=== PATIENT | female | born 1965 | race Caucasian/White ===

== ENCOUNTER 2018-02-11 10:19 | Observation (INO) | payer OTHER ==
[2018-02-11] MEDS ORDERED: SODIUM CHLORIDE 0.9% 1,000 ML IV STA (10:33)
[2018-02-11] MEDS ORDERED: ONDANSETRON 4 MG/2 ML VIAL IVP STA (10:33)
[2018-02-11] MEDS ORDERED: MORPHINE SULFATE 4 MG/ML SYRINGE IVP STA (10:44)
--- NOTE | 2018-02-11 11:06 | ED ---
Abdominal Pain HPI - General Source: patient, RN notes reviewed Mode of arrival: ambulatory Limitations: no limitations <Veto Nino - Last Filed: 02/11/18 12:54> <Jose Maldonado - Last Filed: 02/11/18 13:26> - General Chief Complaint: Abdominal Pain Stated Complaint: abdominal pain Time Seen by Provider: 02/11/18 10:33 - History of Present Illness Initial Comments: 52-year-old female presents emergency Department chief complaint severe right lower quadrant abdominal pain. Patient states pain started last night she states that she woke up around 11:30 with severe pain and has persisted. She does admit to nausea vomiting denies diarrhea, constipation, melena hematochezia. Patient has no dysuria no hematuria. Patient denies any chance . Patient states that she's had no prior abdominal surgeries. Patient denies flank pain, back pain, history kidney stones. She has no current chest pain or shortness breath. Symptoms are worsened with walking, movement and she noticed increased pain with laying flat and the car ride. ( Veto Nino) - Related Data Home Medications Medication Instructions Recorded Confirmed Acetaminophen [Tylenol Extra 500 mg PO Q6H PRN 02/11/18 02/11/18 Strength] Allergies Allergy/AdvReac Type Severity Reaction Status Date / Time No Known Allergies Allergy Verified 02/11/18 11:11 Review of Systems ROS Other: All systems not noted in ROS Statement are negative. <Veto Nino - Last Filed: 02/11/18 12:54> ROS Other: All systems not noted in ROS Statement are negative. <Jose Maldonado - Last Filed: 02/11/18 13:26> ROS Statement: Those systems with pertinent positive or pertinent negative responses have been documented in the HPI. Past Medical History Past Medical History: No Reported History History of Any Multi-Drug Resistant Organisms: None Reported Past Surgical History: No Surgical Hx Reported Past Psychological History: No Psychological Hx Reported Smoking Status: Never smoker Past Alcohol Use History: None Reported Past Drug Use History: None Reported <Veto Nino - Last Filed: 02/11/18 12:54> General Exam Limitations: no limitations General appearance: alert, in no apparent distress, other (Patient appears uncomfortable) Head exam: Present: atraumatic, normocephalic, normal inspection Eye exam: Present: normal appearance, PERRL, EOMI. Absent: scleral icterus, conjunctival injection, periorbital swelling ENT exam: Present: normal exam, normal oropharynx, mucous membranes moist Neck exam: Present: normal inspection, full ROM. Absent: tenderness, meningismus, lymphadenopathy Respiratory exam: Present: normal lung sounds bilaterally. Absent: respiratory distress, wheezes, rales, rhonchi, stridor Cardiovascular Exam: Present: regular rate, normal rhythm, normal heart sounds. Absent: systolic murmur, diastolic murmur, rubs, gallop, clicks GI/Abdominal exam: Present: soft, tenderness (Moderate severe right lower quadrant tenderness), guarding, normal bowel sounds. Absent: distended, rebound , rigid Back exam: Absent: CVA tenderness (R), CVA tenderness (L) Skin exam: Present: warm, dry, intact, normal color. Absent: rash <Veto Nino - Last Filed: 02/11/18 12:54> Course <Veto Nino - Last Filed: 02/11/18 12:54> <Jose Maldonado - Last Filed: 02/11/18 13:26> Vital Signs 02/11/18 02/11/18 02/11/18 10:29 12:15 13:15 Temperature 98.3 F 98.6 F Pulse Rate 90 66 69 Respiratory 18 20 20 Rate Blood Pressure 101/61 104/74 111/60 O2 Sat by Pulse 97 99 99 Oximetry 02/11/18 13:21 Temperature 98.3 F Pulse Rate Respiratory Rate Blood Pressure O2 Sat by Pulse Oximetry - Reevaluation(s) Reevaluation #1: 02/11/18 13:05 Patient reevaluated and reexamined by myself, Dr. Maldonado. Patient resting comfortably in bed. Patient does have moderate abdominal discomfort mostly on the right side of the. Umbilical region. Patient updated on results and plan. Dr. Goldman has an paged for admission for Dr. Gay. I did review and agree with PA findings. This includes all diagnostic interpretations and treatment plan. 02/11/18 13:26 Case was discussed with Dr. Goldman, who will admit. He requests consult with Dr. Black. (Jose Maldonado) Medical Decision Making - Lab Data Result diagrams: 02/11/18 11:05 02/11/18 11:05 <Veto Nino - Last Filed: 02/11/18 12:54> - Lab Data Result diagrams: 02/11/18 11:05 02/11/18 11:05 <Jose Maldonado - Last Filed: 02/11/18 13:26> - Medical Decision Making 52-year-old female presents emergency department for abdominal pain. Patient's found to have acute diverticulitis without evidence of perforation. Patient is having intractable abdominal pain. Patient is not tolerating orals and pain is not controlled to be discharged on oral antibiotics at this time. Patient will be admitted for IV pain meds, IV antibiotics. (Veto Nino) - Lab Data Lab Results 02/11/18 02/11/18 02/11/18 Range/Units 11: 11:05 11:05 WBC 14.5 H (3.8-10.6) k/uL RBC 4.79 (3.80-5.40) m/uL Hgb 13.8 (11.4-16.0) gm/dL Hct 41.6 (34.0-46.0) % MCV 86.9 (80.0-100.0) fL MCH 28.9 (25.0-35.0) pg MCHC 33.2 (31.0-37.0) g/dL RDW 13.2 (11.5-15.5) % Plt Count 370 (150-450) k/uL Neutrophils % 84 % Lymphocytes % 10 % Monocytes % 4 % Eosinophils % 1 % Basophils % 0 % Neutrophils # 12.2 H (1.3-7.7) k/uL Lymphocytes # 1.4 (1.0-4.8) k/uL Monocytes # 0.6 (0-1.0) k/uL Eosinophils # 0.2 (0-0.7) k/uL Basophils # 0.1 (0-0.2) k/uL Sodium 140 (137-145) mmol/L Potassium 4.6 (3.5-5.1) mmol/L Chloride 102 (98-107) mmol/L Carbon Dioxide 26 (22-30) mmol/L Anion Gap 12 mmol/L BUN 16 (7-17) mg/dL Creatinine 0.77 (0.52-1.04) mg/dL Est GFR (CKD-EPI)AfAm >90 (>60 ml/min/1.73 sqM) Est GFR (CKD-EPI)NonAf 90 (>60 ml/min/1.73 sqM) Glucose 101 H (74-99) mg/dL Plasma Lactic Acid Paul (0.7-2.0) mmol/L Calcium 10.3 H (8.4-10.2) mg/dL Total Bilirubin 1.1 (0.2-1.3) mg/dL AST 24 (14-36) U/L ALT 28 (9-52) U/L Alkaline Phosphatase 90 (38-126) U/L Total Protein 8.0 (6.3-8.2) g/dL Albumin 4.6 (3.5-5.0) g/dL Amylase 45 (30-110) U/L Lipase 59 (23-300) U/L Urine Color Light Yellow Urine Appearance Clear (Clear) Urine pH 6.0 (5.0-8.0) Ur Specific [place] 1.011 (1.001-1.035) Urine Protein Negative (Negative) Urine Glucose (UA) Negative (Negative) Urine Ketones Negative (Negative) Urine Blood Negative (Negative) Urine Nitrite Negative (Negative) Urine Bilirubin Negative (Negative) Urine Urobilinogen <2.0 (<2.0) mg/dL Ur Leukocyte Esterase Small H (Negative) Urine RBC 1 (0-5) /hpf Urine WBC 3 (0-5) /hpf Ur Squamous Epith Cells 1 (0-4) /hpf Urine Bacteria Rare H (None) /hpf Urine Mucus Occasional H (None) /hpf 02/11/ Range/Units 11:05 WBC (3.8-10.6) k/uL RBC (3.80-5.40) m/uL Hgb (11.4-16.0) gm/dL Hct (34.0-46.0) % MCV (80.0-100.0) fL MCH (25.0-35.0) pg MCHC (31.0-37.0) g/dL RDW (11.5-15.5) % Plt Count (150-450) k/uL Neutrophils % % Lymphocytes % % Monocytes % % Eosinophils % % Basophils % % Neutrophils # (1.3-7.7) k/uL Lymphocytes # (1.0-4.8) k/uL Monocytes # (0-1.0) k/uL Eosinophils # (0-0.7) k/uL Basophils # (0-0.2) k/uL Sodium (137-145) mmol/L Potassium (3.5-5.1) mmol/L Chloride (98-107) mmol/L Carbon Dioxide (22-30) mmol/L Anion Gap mmol/L BUN (7-17) mg/dL Creatinine (0.52-1.04) mg/dL Est GFR (CKD-EPI)AfAm (>60 ml/min/1.73 sqM) Est GFR (CKD-EPI)NonAf (>60 ml/min/1.73 sqM) Glucose (74-99) mg/dL Plasma Lactic Acid Paul 1.0 (0.7-2.0) mmol/L Calcium (8.4-10.2) mg/dL Total Bilirubin (0.2-1.3) mg/dL AST (14-36) U/L ALT (9-52) U/L Alkaline Phosphatase (38-126) U/L Total Protein (6.3-8.2) g/dL Albumin (3.5-5.0) g/dL Amylase (30-110) U/L Lipase (23-300) U/L Urine Color Urine Appearance (Clear) Urine pH (5.0-8.0) Ur Specific [place] (1.001-1.035) Urine Protein (Negative) Urine Glucose (UA) (Negative) Urine Ketones (Negative) Urine Blood (Negative) Urine Nitrite (Negative) Urine Bilirubin (Negative) Urine Urobilinogen (<2.0) mg/dL Ur Leukocyte Esterase (Negative) Urine RBC (0-5) /hpf Urine WBC (0-5) /hpf Ur Squamous Epith Cells (0-4) /hpf Urine Bacteria (None) /hpf Urine Mucus (None) /hpf Disposition <Veto Nino - Last Filed: 02/11/18 12:54> <Jose Maldonado - Last Filed: 02/11/18 13:26> Clinical Impression: Diverticulitis, Intractable abdominal pain Disposition: ADMITTED IP TO THIS HOSP
[2018-02-11 11:27] LABS: Basophils # (A) 0.1 k/uL (0-0.2); Basophils % (A) 0 %; Eosinophils # (A) 0.2 k/uL (0-0.7); Eosinophils % (A) 1 %; HCT 41.6 % (34.0-46.0); HGB 13.8 gm/dL (11.4-16.0); Lymphocytes # (A) 1.4 k/uL (1.0-4.8); Lymphocytes % (A) 10 %; MCH 28.9 pg (25.0-35.0); MCHC 33.2 g/dL (31.0-37.0); MCV 86.9 fL (80.0-100.0); Mean Platelet Volume 7.5; Monocytes # (A) 0.6 k/uL (0-1.0); Monocytes % (A) 4 %; Neutrophils # (A) 12.2 k/uL (1.3-7.7); Neutrophils % (A) 84 %; Platelet Count 370 k/uL (150-450); RBC 4.79 m/uL (3.80-5.40); RDW 13.2 % (11.5-15.5); WBC 14.5 k/uL (3.8-10.6)
[2018-02-11 11:35] LABS: Appearance,Urine Clear (Clear); Bacteria,Urine Rare /hpf; Bilirubin,Urine Negative (Negative); Blood,Urine Negative (Negative); Color,Urine Light Yellow; Glucose,Urine (UA) Negative (Negative); Ketones,Urine Negative (Negative); Leukocyte Esterase,Urine Small (Negative); Mucus,Urine Occasional /hpf; Nitrite,Urine Negative (Negative); Protein,Urine Negative (Negative); RBC,Urine 1 /hpf (0-5); Specific Gravity,Urine 1.011 (1.001-1.035); Squamous Epithelial Cell,Urine 1 /hpf (0-4); Urobilinogen,Urine <2.0 mg/dL (<2.0); WBC,Urine 3 /hpf (0-5)
[2018-02-11 11:40] LABS: ALT 28 U/L (9-52); AST 24 U/L (14-36); Albumin 4.6 g/dL (3.5-5.0); Alkaline Phosphatase 90 U/L (38-126); Amylase 45 U/L (30-110); Anion Gap 12 mmol/L; Blood Urea Nitrogen 16 mg/dL (7-17); Calcium 10.3 mg/dL (8.4-10.2); Carbon Dioxide 26 mmol/L (22-30); Chloride 102 mmol/L (98-107); Glucose 101 mg/dL (74-99); Lipase 59 U/L (23-300); Potassium 4.6 mmol/L (3.5-5.1); Sodium 140 mmol/L (137-145); Total Bilirubin 1.1 mg/dL (0.2-1.3)
--- NOTE | 2018-02-11 12:16 | CT ---
EXAMINATION TYPE: CT abdomen pelvis w con DATE OF EXAM: 02/11/2018 HISTORY: Right lower quadrant pain with nausea and vomiting CT DLP: 568.8mGycm Automated Exposure Control for Dose Reduction was Utilized. CONTRAST: CT scan of the abdomen and pelvis is performed without oral but with IV Contrast, patient injected wi th 100 mL of Isovue 300. COMPARISON: None FINDINGS: LUNG BASES: No there is partial visualization of bilateral breast implants. Dependent atelectasis in both bases is present LIVER/GB: No significant abnormality is appreciated. PANCREAS: No significant abnormality is seen. SPLEEN: No significant abnormality is seen. ADRENALS: No significant abnormality is seen. KIDNEYS: No significant abnormality is seen. BOWEL: Evaluation bowel slightly suboptimal secondary to lack of enteric contrast there is no suspici ous small or large bowel dilatation. There is low lying cecum into the right pelvis just above bladde r. Appendix is felt within normal limits ascending from cecum seen best coronal images 38 through 44 with S-shaped course. There are scattered colonic diverticula . There is focal moderate to severe wal l thickening with prominent superior aspect diverticulum in the transverse colon just right of midlin e coronal image 32 has mild to moderate surrounding fluid and fat stranding consistent with acute div erticulitis at this level. No well-formed fluid collection or abscess is seen. No pneumoperitoneum is noted. UTERUS/ADNEXA: Metallic IUD is seen centrally in anteverted uterus. LYMPH NODES: No greater than 1cm abdominal or pelvic lymph nodes are appreciated. OSSEOUS STRUCTURES: Spine is straightened on sagittal images there is mild to moderate disc space zahra rowing and spurring at L1-L2 level. OTHER: No significant additional abnormality is seen. IMPRESSION: CT findings consistent with a fairly moderate acute diverticulitis involving the transver se colon proximal to mid aspect just right of midline just above the umbilicus. Because of location a nd eccentric wall thickening and patient's age follow-up colonoscopy after treatment advised to rule out neoplasm at this level if has not been performed in last 3 years.
[2018-02-11] MEDS ORDERED: HYDROmorphone 1 MG/ML 1 ML SYRINGE IVP STA ×2 (12:47→15:01)
[2018-02-11] MEDS ORDERED: NALOXONE 0.4 MG/ML 1 ML VIAL IV PRN (12:55)
[2018-02-11] MEDS ORDERED: HYDROmorphone 1 MG/ML 1 ML SYRINGE IVP PRN ×2 (12:55)
[2018-02-11] MEDS ORDERED: ONDANSETRON 4 MG/2 ML VIAL IVP PRN ×2 (12:55→15:24)
[2018-02-11] MEDS ORDERED: LEVOFLOXACIN 750MG-D5W PMX 750 MG in DEXTROSE/WATER 1 150ML.BAG IVPB STA (12:56)
[2018-02-11] MEDS ORDERED: metroNIDAZOLE-NS PMX 500 MG in SALINE 1 100ML.BAG IVPB STA (12:56)
[2018-02-11] MEDS: SODIUM CHLORIDE 0.9% 1,000 ML IV SCH ×2 (12:57→23:48)
[2018-02-11] MEDS: metroNIDAZOLE-NS PMX 500 MG in SALINE 1 100ML.BAG IVPB SCH ×2 (15:17→23:47)
--- NOTE | 2018-02-11 15:23 | P.HPIM ---
History of Present Illness H&P Date: 02/11/18 Chief Complaint: abdominal pain This is a 52-year-old female patient of Dr. Gay. Patient presented to the emergency room with complaints of abdominal pain started last night and that she woke up around 11:30 with severe abdominal pain. Over the past couple hours pain became significantly worse. Patient states she has been unable to eat food. Patient denies any nausea vomiting or diarrhea. Patient denies any recent constipation. Patient denies any significant medical history or surgeries. Patient denies any history of abdominal surgeries. Patient denies any alcohol consumption or change in diet. CT of abdomen showing fairly moderate acute diverticulitis involving the transverse colon proximal to mid aspect just right of the midline just above the umbilicus. Because location eccentric wall thickening and patient's age follow-up colonoscopy after treatment by throughout neoplasm at this level is not performed an last [address] thibodeaux per surgical services have been consulted. Patient started on Flagyl and Levaquin for IV antibiotics. White blood cell elevated at 14.5. Blood and urine cultures have been ordered. At this time patient is still complaining of abdominal pain. Patient does have Dilaudid 1 mg every 3 hours per pain. Patient is currently on clear liquid diet. Patient denies chest pain or shortness of breath. Patient denies any nausea or vomiting. Patient is still complaining of abdominal pain. Patient denies any urinary burning or frequency. Review of Systems Please refer to HPI otherwise unremarkable Past Medical History Past Medical History: No Reported History History of Any Multi-Drug Resistant Organisms: None Reported Past Surgical History: Adenoidectomy, Orthopedic Surgery, Tonsillectomy Additional Past Surgical History / Comment(s): Bilateral carpal tunnel releases Past Anesthesia/Blood Transfusion Reactions: No Reported Reaction Smoking Status: Never smoker - Past Family History Father Additional Family Medical History / Comment(s): Father of "internal organ failure" at the age of 68yrs. Mother Family Medical History: Cancer Additional Family Medical History / Comment(s): Mother has stage iv renal cancer with mets. Medications and Allergies Home Medications Medication Instructions Recorded Confirmed Type Acetaminophen [Tylenol Extra 500 mg PO Q6H PRN 02/11/18 02/11/18 History Strength] Allergies Allergy/AdvReac Type Severity Reaction Status Date / Time peanut Allergy Intermediate Rash/Hives Verified 02/11/18 14:35 Physical Exam Vitals: Vital Signs Temp Pulse Pulse Resp BP BP Pulse Ox 02/11/18 14:30 98.2 F 106 H 14 115/71 97 02/11/18 13:21 98.3 F 02/11/18 13:15 69 20 111/60 99 02/11/18 12:15 98.6 F 66 20 104/74 99 02/11/18 10:29 98.3 F 90 18 101/61 97 Intake and Output 02/11/18 02/11/18 02/11/18 06:59 14:59 22:59 Other: # Voids 1 Weight 61.235 kg Head normocephalic Neck supple Lungs clear to auscultation bilaterally no wheezing or crackles Heart regular rate and rhythm S1-S2, no rub or gallop Abdomen tender to palpation right lower quadrant and mid abdomen. Extremities no edema Neuro alert and orientated to 3 Results CBC & Chem 7: 02/11/18 11:05 02/11/18 11:05 Labs: Abnormal Lab Results - Last 24 Hours (Table) 02/11/18 02/11/18 02/11/18 Range/Units 11:05 11:05 11:05 WBC 14.5 H (3.8-10.6) k/uL Neutrophils # 12.2 H (1.3-7.7) k/uL Glucose 101 H (74-99) mg/dL Calcium 10.3 H (8.4-10.2) mg/dL Ur Leukocyte Esterase Small H (Negative) Urine Bacteria Rare H (None) /hpf Urine Mucus Occasional H (None) /hpf Thrombosis Risk Factor Assmnt - Choose All That Apply Any of the Below Risk Factors Present?: Yes Each Factor Represents 1 point: Age 41-60 years Other Risk Factors: No Other congenital or acquired thrombophilia - If yes, enter type in comment: No Thrombosis Risk Factor Assessment Total Risk Factor Score: 1 Thrombosis Risk Factor Assessment Level: Low Risk Assessment and Plan Assessment: 1. Abdominal pain related to acute diverticulitis. Computed tomography scan completed showing fairly moderate acute diverticulitis involving the transverse colon proximal to mid aspect just right of midline just above the umbilicus. Because location eccentric wall thickening patient's age follow-up colonoscopy after treatment is to rule out neoplasm and follow-up if not performed in the last [address] Arnold per surgical services have been consulted. Patient started on Levaquin and Flagyl for IV antibiotics. Clear liquid diet. Dilaudid 1 mg every 3 hours for adequate pain control. 2. Leukocytosis. Patient currently on Levaquin and Flagyl. Urine and blood cultures ordered A.m. labs have been ordered DVT prophylaxis SCDs due to possible surgical intervention. GI prophylaxis Protonix Time with Patient: Greater than 30 (Greater than 60% of the total time spent in counseling and coordination of care. I performed an examination of the patient and discussed their management with the Nurse Practitioner. I have reviewed the Nurse Practitioner's notes and agree with the documented findings and plan of care)
[2018-02-11] MEDS ORDERED: METOCLOPRAMIDE 5 MG/ML 2 ML VIAL IVP PRN (16:24)
--- NOTE | 2018-02-11 16:27 | P.GSHP ---
History of Present Illness H&P Date: 02/11/18 Chief Complaint: Diverticulitis 52-year-old female admitted to the hospital with complaints of right-sided abdominal pain. Pain began suddenly at 11 last night. Denies fevers or chills. Normal bowel movement this morning. No rectal bleeding or melena. White blood cell count elevated. CAT scan shows evidence of acute diverticulitis involving the proximal transverse colon. Wall thickening present. Associated neoplasm not excluded. Family history of diverticulitis and renal cancer. She is having episodes of nausea and vomiting. Appetite diminished. - Review of Systems Comment: The patient denies any acute changes in vision or hearing, no dysphagia or odynophagia, no chest pain or shortness of breath, no dysuria or hematuria, no headache, no runny nose, no rectal bleeding or melena, no unexplained weight loss Past Medical History Past Medical History: No Reported History History of Any Multi-Drug Resistant Organisms: None Reported Past Surgical History: Adenoidectomy, Orthopedic Surgery, Tonsillectomy Additional Past Surgical History / Comment(s): Bilateral carpal tunnel releases Past Anesthesia/Blood Transfusion Reactions: No Reported Reaction Smoking Status: Never smoker - Past Family History Father Additional Family Medical History / Comment(s): Father of "internal organ failure" at the age of 68yrs. Mother Family Medical History: Cancer Additional Family Medical History / Comment(s): Mother has stage iv renal cancer with mets. Medications and Allergies Home Medications Medication Instructions Recorded Confirmed Type Acetaminophen [Tylenol Extra 500 mg PO Q6H PRN 02/11/18 02/11/18 History Strength] Allergies Allergy/AdvReac Type Severity Reaction Status Date / Time peanut Allergy Intermediate Rash/Hives Verified 02/11/18 14:35 Surgical - Exam Vital Signs Temp Pulse Resp BP Pulse Ox 98.3 F 90 18 101/61 97 02/11/18 10:29 02/11/18 10:29 02/11/18 10:29 02/11/18 10:29 02/11/18 10:29 Physical exam: General: Well-developed, well-nourished HEENT: Normocephalic, sclerae nonicteric Abdomen: Right mid abdominal tenderness, nondistended Extremities: No edema Neuro: Alert and oriented Results - Labs 02/11/18 11:05 02/11/18 11:05 Abnormal Lab Results - Last 24 Hours (Table) 02/11/18 02/11/18 02/11/18 Range/Units 11:05 11:05 11:05 WBC 14.5 H (3.8-10.6) k/uL Neutrophils # 12.2 H (1.3-7.7) k/uL Glucose 101 H (74-99) mg/dL Calcium 10.3 H (8.4-10.2) mg/dL Ur Leukocyte Esterase Small H (Negative) Urine Bacteria Rare H (None) /hpf Urine Mucus Occasional H (None) /hpf Diabetes panel 02/11/18 Range/Units 11:05 Sodium 140 (137-145) mmol/L Potassium 4.6 (3.5-5.1) mmol/L Chloride 102 (98-107) mmol/L Carbon Dioxide 26 (22-30) mmol/L BUN 16 (7-17) mg/dL Creatinine 0.77 (0.52-1.04) mg/dL Glucose 101 H (74-99) mg/dL Calcium 10.3 H (8.4-10.2) mg/dL AST 24 (14-36) U/L ALT 28 (9-52) U/L Alkaline Phosphatase 90 (38-126) U/L Total Protein 8.0 (6.3-8.2) g/dL Albumin 4.6 (3.5-5.0) g/dL Calcium panel 02/11/18 Range/Units 11:05 Calcium 10.3 H (8.4-10.2) mg/dL Albumin 4.6 (3.5-5.0) g/dL Pituitary panel 02/11/18 Range/Units 11:05 Sodium 140 (137-145) mmol/L Potassium 4.6 (3.5-5.1) mmol/L Chloride 102 (98-107) mmol/L Carbon Dioxide 26 (22-30) mmol/L BUN 16 (7-17) mg/dL Creatinine 0.77 (0.52-1.04) mg/dL Glucose 101 H (74-99) mg/dL Calcium 10.3 H (8.4-10.2) mg/dL Adrenal panel 02/11/18 Range/Units 11:05 Sodium 140 (137-145) mmol/L Potassium 4.6 (3.5-5.1) mmol/L Chloride 102 (98-107) mmol/L Carbon Dioxide 26 (22-30) mmol/L BUN 16 (7-17) mg/dL Creatinine 0.77 (0.52-1.04) mg/dL Glucose 101 H (74-99) mg/dL Calcium 10.3 H (8.4-10.2) mg/dL Total Bilirubin 1.1 (0.2-1.3) mg/dL AST 24 (14-36) U/L ALT 28 (9-52) U/L Alkaline Phosphatase 90 (38-126) U/L Total Protein 8.0 (6.3-8.2) g/dL Albumin 4.6 (3.5-5.0) g/dL Assessment and Plan (1) Diverticulitis Narrative/Plan: Continue IV antibiotics. Continue liquid diet. Will add Toradol and Reglan. Will require follow-up colonoscopy 6-8 weeks. Will follow. Current Visit: Yes Status: Acute Code(s): K57.92 - DVTRCLI OF INTEST, PART UNSP, W/O PERF OR ABSCESS W/O BLEED SNOMED Code(s): 904218671
[2018-02-11] MEDS: KETOROLAC 30 MG/ML 1 ML VIAL IVP SCH ×2 (17:00→23:47)
[2018-02-11] MEDS: HEPARIN SODIUM,PORCINE 5,000 UNIT/ML 1 ML VIAL SQ SCH (23:47)
[2018-02-12] MEDS: KETOROLAC 30 MG/ML 1 ML VIAL IVP SCH ×3 (05:22→17:19)
[2018-02-12] MEDS: metroNIDAZOLE-NS PMX 500 MG in SALINE 1 100ML.BAG IVPB SCH ×2 (08:17→15:00)
[2018-02-12] MEDS: PANTOPRAZOLE 40 MG/10 ML VIAL IV SCH (08:19)
[2018-02-12] MEDS: HEPARIN SODIUM,PORCINE 5,000 UNIT/ML 1 ML VIAL SQ SCH ×2 (08:19→17:08)
[2018-02-12] MEDS: SODIUM CHLORIDE 0.9% 1,000 ML IV SCH ×2 (08:27→17:13)
[2018-02-12 09:44] LABS: Basophils % (A) 0 %; Eosinophils # (A) 0.1 k/uL (0-0.7); Eosinophils % (A) 1 %; HCT 31.5 % (34.0-46.0); Lymphocytes # (A) 1.4 k/uL (1.0-4.8); Lymphocytes % (A) 18 %; MCH 29.6 pg (25.0-35.0); MCHC 33.1 g/dL (31.0-37.0); MCV 89.5 fL (80.0-100.0); Mean Platelet Volume 7.6; Monocytes # (A) 0.4 k/uL (0-1.0); Monocytes % (A) 6 %; Neutrophils # (A) 5.7 k/uL (1.3-7.7); Neutrophils % (A) 73 %; Platelet Count 232 k/uL (150-450); RBC 3.52 m/uL (3.80-5.40); RDW 13.2 % (11.5-15.5); WBC 7.8 k/uL (3.8-10.6)
[2018-02-12 09:46] LABS: HGB 10.4 gm/dL (11.4-16.0)
[2018-02-12 09:55] LABS: ALT 24 U/L (9-52); AST 13 U/L (14-36); Albumin 2.8 g/dL (3.5-5.0); Alkaline Phosphatase 53 U/L (38-126); Anion Gap 6 mmol/L; Blood Urea Nitrogen 11 mg/dL (7-17); Calcium 8.6 mg/dL (8.4-10.2); Carbon Dioxide 24 mmol/L (22-30); Chloride 111 mmol/L (98-107); Glucose 111 mg/dL (74-99); Potassium 3.6 mmol/L (3.5-5.1); Sodium 141 mmol/L (137-145); Total Bilirubin 0.5 mg/dL (0.2-1.3); Total Protein 5.3 g/dL (6.3-8.2)
[2018-02-12] MEDS ORDERED: LEVOFLOXACIN 750MG-D5W PMX 750 MG in DEXTROSE/WATER 1 150ML.BAG IVPB SCH (13:00)
--- NOTE | 2018-02-12 14:39 | P.DS ---
Providers Date of admission: 02/11/18 13:08 Expected date of discharge: 02/12/18 Attending physician: Marcelo Goldman Consults: 02/12/18 12:09 Consult Physician Routine Consulting Provider: Yo Kaufman Consult Reason/Comments: diverticulitis Do you want consulting provider notified?: Yes Primary care physician: Gayla Gay [place] Hospital Course: Discharge diagnosis 1. Abdominal pain related to acute diverticulitis. Computed tomography scan completed showing fairly moderate acute diverticulitis involving the transverse colon proximal to mid aspect just right of midline just above the umbilicus. Because location eccentric wall thickening patient's age follow-up colonoscopy after treatment is to rule out neoplasm and follow-up if not performed in the last [address] Arnold per surgical services have been consulted. Patient started on Levaquin and Flagyl for IV antibiotics. Clear liquid diet. Dilaudid 1 mg every 3 hours for adequate pain control. Per surgical services patient will require follow-up colonoscopy in 6-8 weeks 2. Leukocytosis. Patient currently on Levaquin and Flagyl. Urine and blood cultures ordered. White Blood cell improving to 7.8. Patient will be DC'd home on oral Levaquin and Flagyl for 10 days. Patient advised to follow-up closely with PCP Hospital course This is a 52-year-old female patient of Dr. Gay. Patient presented to the emergency room with complaints of abdominal pain started last night and that she woke up around 11:30 with severe abdominal pain. Over the past couple hours pain became significantly worse. Patient states she has been unable to eat food. Patient denies any nausea vomiting or diarrhea. Patient denies any recent constipation. Patient denies any significant medical history or surgeries. Patient denies any history of abdominal surgeries. Patient denies any alcohol consumption or change in diet. CT of abdomen showing fairly moderate acute diverticulitis involving the transverse colon proximal to mid aspect just right of the midline just above the umbilicus. Because location eccentric wall thickening and patient's age follow-up colonoscopy after treatment by throughout neoplasm at this level is not performed an last [address] thibodeaux per surgical services have been consulted. Patient started on Flagyl and Levaquin for IV antibiotics. White blood cell elevated at 14.5. Blood and urine cultures have been ordered. At this time patient is still complaining of abdominal pain. Patient does have Dilaudid 1 mg every 3 hours per pain. Patient is currently on clear liquid diet. Patient denies chest pain or shortness of breath. Patient denies any nausea or vomiting. Patient is still complaining of abdominal pain. Patient denies any urinary burning or frequency. On 02/12/2018 patient is very eager to go home. Patient states she is feeling improved. She still having some tenderness but would like to go home. Patient states she did have normal bowel movement this morning. Patient has been tolerable liberating clear liquid diet. White blood cell has improved. Patient will be DC'd home on Levaquin and Flagyl for 10 more days. Patient advised to follow-up closely with Dr. thibodeaux or Dr. Wells for outpatient colonoscopy in 6-8 weeks. Denies chest pain or shortness of breath. Patient denies any nausea vomiting or diarrhea. Patient denies any urinary burning or frequency. Patient also advised if symptoms resume she is to return to ER for further evaluation. I performed an examination of the patient and discussed their management with the Nurse Practitioner. I have reviewed the Nurse Practitioner's notes and agree with the documented findings and plan of care Patient Condition at Discharge: Stable Plan - Discharge Summary Discharge Rx Participant: No New Discharge Prescriptions: New Levofloxacin [Levaquin] 500 mg PO DAILY 10 Days #10 tab metroNIDAZOLE [Flagyl] 500 mg PO Q8HR 10 Days #30 tab Continue Acetaminophen [Tylenol Extra Strength] 500 mg PO Q6H PRN PRN Reason: Pain Discharge Medication List Acetaminophen [Tylenol Extra Strength] 500 mg PO Q6H PRN 02/11/18 [History] Levofloxacin [Levaquin] 500 mg PO DAILY 10 Days #10 tab 02/12/18 [Rx] metroNIDAZOLE [Flagyl] 500 mg PO Q8HR 10 Days #30 tab 02/12/18 [Rx] Follow up Appointment(s)/Referral(s): Gayla Gay DO [Primary Care Provider] - 1-2 days Yo Kaufman MD [STAFF PHYSICIAN] - 1 Week Activity/Diet/Wound Care/Special Instructions: Diet advance as tolerated Activity as tolerated Discharge Disposition: HOME SELF-CARE
--- NOTE | 2018-02-12 18:36 | P.GSCN ---
History of Present Illness Consult date: 02/12/18 Reason for Consult: Diverticulitis History of present illness: This is a 52-year-old female who sees Dr. lopez as an outpatient. Patient was admitted to the hospital yesterday for treatment of diverticulitis. Patient 's severe pain left lower quadrant and right lower quadrant on admission. She still has pain in the right lower quadrant today. She is tolerating clear liquids today she feels better yesterday but still has significant pain. Past Medical History Past Medical History: No Reported History History of Any Multi-Drug Resistant Organisms: None Reported Past Surgical History: Adenoidectomy, Orthopedic Surgery, Tonsillectomy Additional Past Surgical History / Comment(s): Bilateral carpal tunnel releases Past Anesthesia/Blood Transfusion Reactions: No Reported Reaction Smoking Status: Never smoker - Past Family History Father Additional Family Medical History / Comment(s): Father of "internal organ failure" at the age of 68yrs. Mother Family Medical History: Cancer Additional Family Medical History / Comment(s): Mother has stage iv renal cancer with mets. Medications and Allergies Home Medications Medication Instructions Recorded Confirmed Type Acetaminophen [Tylenol Extra 500 mg PO Q6H PRN 02/11/18 02/11/18 History Strength] Levofloxacin [Levaquin] 500 mg PO DAILY 10 Days #10 tab 02/12/18 Rx metroNIDAZOLE [Flagyl] 500 mg PO Q8HR 10 Days #30 tab 02/12/18 Rx Allergies Allergy/AdvReac Type Severity Reaction Status Date / Time peanut Allergy Intermediate Rash/Hives Verified 02/11/18 14:35 Surgical - Exam Vital Signs Temp Pulse Resp BP Pulse Ox 98.3 F 90 18 101/61 97 02/11/18 10:29 02/11/18 10:29 02/11/18 10:29 02/11/18 10:29 02/11/18 10:29 - General well developed, moderate distress - Eyes PERRL - ENT normal pinna - Neck no masses - Respiratory normal expansion - Cardiovascular Rhythm: regular - Abdomen Heart tenderness left lower quadrant and right lower quadrant Abdomen: soft Results - Labs 02/12/18 09:17 02/12/18 09:17 Abnormal Lab Results - Last 24 Hours (Table) 02/12/18 02/12/18 Range/Units 09:17 09:17 RBC 3.52 L (3.80-5.40) m/uL Hgb 10.4 L D (11.4-16.0) gm/dL Hct 31.5 L (34.0-46.0) % Chloride 111 H (98-107) mmol/L Glucose 111 H (74-99) mg/dL AST 13 L (14-36) U/L Total Protein 5.3 L (6.3-8.2) g/dL Albumin 2.8 L (3.5-5.0) g/dL Microbiology - Last 24 Hours (Table) 02/11/18 11:05 Blood Culture - Preliminary Blood No Growth after 24 hours 02/11/18 11:05 Urine Culture - Preliminary Urine,Clean Catch Diabetes panel 02/12/18 Range/Units 09:17 Sodium 141 (137-145) mmol/L Potassium 3.6 (3.5-5.1) mmol/L Chloride 111 H (98-107) mmol/L Carbon Dioxide 24 (22-30) mmol/L BUN 11 (7-17) mg/dL Creatinine 0.72 (0.52-1.04) mg/dL Glucose 111 H (74-99) mg/dL Calcium 8.6 (8.4-10.2) mg/dL AST 13 L (14-36) U/L ALT 24 (9-52) U/L Alkaline Phosphatase 53 (38-126) U/L Total Protein 5.3 L (6.3-8.2) g/dL Albumin 2.8 L (3.5-5.0) g/dL Calcium panel 02/12/18 Range/Units 09:17 Calcium 8.6 (8.4-10.2) mg/dL Albumin 2.8 L (3.5-5.0) g/dL Pituitary panel 02/12/18 Range/Units 09:17 Sodium 141 (137-145) mmol/L Potassium 3.6 (3.5-5.1) mmol/L Chloride 111 H (98-107) mmol/L Carbon Dioxide 24 (22-30) mmol/L BUN 11 (7-17) mg/dL Creatinine 0.72 (0.52-1.04) mg/dL Glucose 111 H (74-99) mg/dL Calcium 8.6 (8.4-10.2) mg/dL Adrenal panel 02/12/18 Range/Units 09:17 Sodium 141 (137-145) mmol/L Potassium 3.6 (3.5-5.1) mmol/L Chloride 111 H (98-107) mmol/L Carbon Dioxide 24 (22-30) mmol/L BUN 11 (7-17) mg/dL Creatinine 0.72 (0.52-1.04) mg/dL Glucose 111 H (74-99) mg/dL Calcium 8.6 (8.4-10.2) mg/dL Total Bilirubin 0.5 (0.2-1.3) mg/dL AST 13 L (14-36) U/L ALT 24 (9-52) U/L Alkaline Phosphatase 53 (38-126) U/L Total Protein 5.3 L (6.3-8.2) g/dL Albumin 2.8 L (3.5-5.0) g/dL - Imaging CT scan - abdomen: report reviewed (Computed tomography scan shows evidence of diverticulitis and transverse colon.) Assessment and Plan Assessment: Diverticulosis. Patient still has significant abdominal pain. I discussed with patient that she should continue IV antibiotics and consider holding her discharge. Patient is amenable this. She'll placed on some full liquid diet tonight. We will reevaluate her in the morning.
[2018-02-13] MEDS: SODIUM CHLORIDE 0.9% 1,000 ML IV SCH (00:07)
[2018-02-13] MEDS: metroNIDAZOLE-NS PMX 500 MG in SALINE 1 100ML.BAG IVPB SCH ×2 (00:15→08:03)
[2018-02-13] MEDS: KETOROLAC 30 MG/ML 1 ML VIAL IVP SCH ×2 (00:16→06:17)
[2018-02-13] MEDS: HEPARIN SODIUM,PORCINE 5,000 UNIT/ML 1 ML VIAL SQ SCH ×2 (00:21→08:02)
[2018-02-13 02:22] VITALS: PULSE 81
[2018-02-13 08:18] VITALS: BP 107/68; RESP 16; TEMP 98.3
[2018-02-13 08:31] LABS: Basophils % (A) 0 %; Eosinophils # (A) 0.2 k/uL (0-0.7); Eosinophils % (A) 2 %; HCT 32.4 % (34.0-46.0); HGB 10.8 gm/dL (11.4-16.0); Lymphocytes # (A) 0.8 k/uL (1.0-4.8); Lymphocytes % (A) 9 %; MCH 29.5 pg (25.0-35.0); MCHC 33.2 g/dL (31.0-37.0); MCV 88.9 fL (80.0-100.0); Mean Platelet Volume 8.2; Monocytes # (A) 0.4 k/uL (0-1.0); Monocytes % (A) 5 %; Neutrophils # (A) 7.1 k/uL (1.3-7.7); Neutrophils % (A) 83 %; Platelet Count 255 k/uL (150-450); RBC 3.65 m/uL (3.80-5.40); WBC 8.5 k/uL (3.8-10.6)
[2018-02-13 09:00] LABS: ALT 23 U/L (9-52); AST 16 U/L (14-36); Albumin 2.9 g/dL (3.5-5.0); Alkaline Phosphatase 55 U/L (38-126); Anion Gap 6 mmol/L; Blood Urea Nitrogen 7 mg/dL (7-17); Calcium 8.7 mg/dL (8.4-10.2); Carbon Dioxide 25 mmol/L (22-30); Chloride 110 mmol/L (98-107); Glucose 126 mg/dL (74-99); Sodium 141 mmol/L (137-145); Total Bilirubin 0.5 mg/dL (0.2-1.3); Total Protein 5.4 g/dL (6.3-8.2)
[2018-02-13] MEDS: PANTOPRAZOLE 40 MG/10 ML VIAL IV SCH (09:30)
[2018-02-13] MEDS ORDERED: SODIUM CHLORIDE 0.9% 1,000 ML IV SCH (09:45)
--- NOTE | 2018-02-13 10:06 | P.PN ---
Progress Note - Text Progress Note Date: 02/13/18 The patient feels better overnight. Her discharge was held yesterday due to her right sided pain. Patient's pain is improved she'll still has some mild tenderness. On exam her vital signs are stable. Her abdomen is soft. There is some minimal right-sided tenderness. There is no rebound or guarding. Transverse colon diverticulitis. Patient be discharged home today she'll continue oral I device. I will see her next week in the office.
== END 2018-02-13 11:10 | disposition home or self-care (01) ==
LOC: EC 10:19 → INTOOBSV 13:08 → 6PED 13:08 → UNDODISIN 02-13 11:10
PROVIDERS: ADMIT Internal Medicine; ATTEND Internal Medicine
DX: K57.32 Diverticulitis of large intestine without perforation or abscess without bleeding (principal); Z80.51 Family history of malignant neoplasm of kidney; Z91.010 Allergy to peanuts
CPT/HCPCS: 96361; 96365; 96375; 99285; 36415; 80053 ×3; 82150; 83605; 83690; 85025 ×3; 81001; 87040; 87086; 74177; G0378 ×3; J2270; J1644 ×2; J2765; J2405; J1885 ×3; J1170; J1956 ×2; C9113 ×2; Q9967